=== PATIENT | female | born 2000 | race Caucasian/White ===

== ENCOUNTER 2020-05-14 09:26 | Emergency (ER) | payer MEDICARE ==
[~2020-05-14] VITALS: Ht 167.6 cm; Wt 81.6 kg
[2020-05-14] MEDS ORDERED: SODIUM CHLORIDE 0.9% 1000ML 1,000 ML IV STA ×2 (09:43)
[2020-05-14] MEDS ORDERED: PANTOPRAZOLE 40 MG 10ML VIAL IV NR (09:45)
[2020-05-14] MEDS ORDERED: ONDANSETRON HCL INJ 2MG/ML 2ML 2 MG/ML VIAL IV NR (09:45)
[2020-05-14 10:00] LABS: BASOPHILS # (AUTO) 0.1 (0.0-0.1); BASOPHILS % 0.4 % (0.0-1.0); EOSINOPHILS # (AUTO) 0.3 (0.0-0.4); EOSINOPHILS % 2.5 % (0.0-6.0); HEMATOCRIT 35.6 % (34.2-44.1); HEMOGLOBIN 11.2 g/dL (12.0-16.0); LYMPHOCYTES % 8.3 % (18.0-39.1); MEAN CORPUSCULAR HEMOGLOBIN 24.8 pg (28-32); MEAN CORPUSCULAR HGB CONC 31.5 g/dL (31-35); MEAN CORPUSCULAR VOLUME 78.9 fL (81-99); MONOCYTES # (AUTO) 0.6 (0.2-0.8); MONOCYTES % 5.2 % (4.4-11.3); NEUTROPHILS % 82.6 % (38.7-80.0); PLATELET COUNT 332 x10e3/uL (140-360); RED BLOOD COUNT 4.51 x10e6/uL (3.6-5.1); RED CELL DISTRIBUTION WIDTH 14.3 % (11.7-14.4)
[2020-05-14] MEDS ORDERED: ACETAMINOPHEN 325 MG TAB PO ONE (10:00)
[2020-05-14 10:12] LABS: INR 1.01; PROTHROMBIN TIME 13.9 seconds (11.9-14.5)
[2020-05-14 10:13] LABS: PARTIAL THROMBOPLASTIN TIME 28.7 seconds (23.8-35.5)
[2020-05-14 10:16] LABS: CLARITY,URINE CLOUDY (CLEAR); COLOR,URINE YELLOW (YELLOW); KETONES,URINE NEGATIVE (NEGATIVE); LEUKOCYTE ESTERASE ,URINE SMALL (NEGATIVE); NITRITE,URINE POSITIVE (NEGATIVE); PROTEIN,URINE DIPSTICK 1+ (NEGATIVE); URINE UROBILINOGEN 0.2 mg/dL (0.2 - 1)
[2020-05-14 10:17] LABS: PREGNANCY TEST, URINE NEGATIVE (NEGATIVE)
[2020-05-14 10:21] LABS: ALANINE AMINOTRANSFERASE 17 IU/L (0-55); ALBUMIN/GLOBULIN RATIO 0.8 (0.8-2.0); ALKALINE PHOSPHATASE 89 IU/L (40-150); ANION GAP 11.7 mmol/L (8-16); BLOOD UREA NITROGEN 5 mg/dL (7-26); BUN/CREATININE RATIO 8 (6-25); CALCIUM 8.2 mg/dL (8.4-10.2); CARBON DIOXIDE 24 mmol/L (22-29); CHLORIDE 108 mmol/L (98-107); CREATINE KINASE 53 IU/L (29-168); EST GLOMERULAR FILTRATION RATE > 60 ML/MIN (60-); GLUCOSE 124 mg/dL (74-118); POTASSIUM 3.7 mmol/L (3.5-5.1); SODIUM 140 mmol/L (136-145)
[2020-05-14] MEDS ORDERED: CEFTRIAXONE SOD 1 GM in SODIUM CHLORIDE 0.9% 50ML 50 ML IV ONE (10:30)
[2020-05-14] MEDS ORDERED: CEFTRIAXONE SOD 1 GM/50 ML BAG IV ONE (10:30)
[2020-05-14 10:35] LABS: BACTERIA,URINE FEW /HPF; EPITHELIAL CELLS,URINE FEW /LPF
[2020-05-14 12:20] LABS: AMPHETAMINES SCREEN,URINE NEGATIVE (NEGATIVE); BENZODIAZEPINES SCREEN,URINE NEGATIVE (NEGATIVE); PHENCYCLIDINE SCREEN,URINE NEGATIVE (NEGATIVE)
[2020-05-14 15:45] VITALS: BP 114/56
== END 2020-05-14 15:46 | disposition home or self-care (01) ==
LOC: ER 09:45
DX: A41.9 Sepsis, unspecified organism (principal); R50.9 Fever, unspecified; R07.89 Other chest pain; N39.0 Urinary tract infection, site not specified; R53.81 Other malaise; Z20.822 Contact with and (suspected) exposure to COVID-19; F17.210 Nicotine dependence, cigarettes, uncomplicated
CPT/HCPCS: 36415; 71045; 80053; 80307; 81001; 81025; 82550; 82553; 83605; 84484; 85025; 85610; 85730; 87040; 87071; 87086; 87186; 87205; 99284; C9113; J0696; J2405; J7030; U0002